=== PATIENT | female | born 1960 | race Caucasian/White ===

== ENCOUNTER 2020-10-03 07:16 | Outpatient (CLI) | payer OTHER ==
[~2020-10-03 07:16] MED LIST: ANTIVERT12.5 MG; DIOVAN160 M1; GLUCOPHAGE XR500 MG; KETO10TA2 PO; SEPTRA DS TABLE1 TAB PO; SYNTHROID125 MCG; TAMS0.4C PO
== END 2020-10-03 08:32 | disposition home or self-care (01) ==
LOC: TOM 07:16
PROVIDERS: ATTEND Internal Medicine Cardiovascular Disease
DX: K76.0 Fatty (change of) liver, not elsewhere classified (principal); R16.2 Hepatomegaly with splenomegaly, not elsewhere classified; N20.0 Calculus of kidney; I10 Essential (primary) hypertension; K42.9 Umbilical hernia without obstruction or gangrene; E11.69 Type 2 diabetes mellitus with other specified complication; K57.90 Diverticulosis of intestine, part unspecified, without perforation or abscess without bleeding

== ENCOUNTER 2021-07-30 08:00 | Outpatient (CLI) | payer OTHER | END 2021-07-30 08:30 | disposition home or self-care (01) | LOC: PPH VACUNA 08:00 | PROVIDERS: ATTEND Emergency Medicine Pediatric Emergency Medicine | DX: Z23 Encounter for immunization (principal) ==